=== PATIENT | male | born 1985 | race Caucasian/White ===

== ENCOUNTER 2018-11-10 10:28 | Outpatient (CLI) | payer OTHER, BC ==
[2018-11-10 12:52] LABS: BASOPHILS % (AUTO) 0.4 %; EOSINOPHILS # (AUTO) 0.3 10^3/uL (0.0-0.7); EOSINOPHILS % (AUTO) 3.8 %; HGB - HEMOGLOBIN 15.4 g/dL (14.0-18.0); LYMPHOCYTES # (AUTO) 1.6 10^3/uL (1.5-3.5); LYMPHOCYTES % (AUTO) 21.1 %; MEAN CORPUSCULAR HGB CONC 33.4 g/dL (32.0-36.0); MEAN CORPUSCULAR VOLUME 89.9 fL (80.0-94.0); MEAN PLATELET VOLUME 9.2 fL (7.4-11.4); MONOCYTES # (AUTO) 0.6 10^3/uL (0.0-1.0); MONOCYTES % (AUTO) 8.1 %; NEUTROPHILS # (AUTO) 5.1 10^3/uL (1.5-6.6); NEUTROPHILS % (AUTO) 66.6 %; PLT - PLATELET COUNT 228 10^3/uL (130-450); RED BLOOD COUNT 5.12 10^6/uL (4.70-6.10); RED CELL DISTRIBUTION WIDTH 13.4 % (12.0-15.0); WHITE BLOOD COUNT 7.6 x10^3/uL (4.8-10.8)
[2018-11-10 13:23] LABS: ALBUMIN 4.6 g/dL (3.2-5.5); ALBUMIN/GLOBULIN RATIO 1.8 (1.0-2.2); BILIRUBIN,TOTAL 0.7 mg/dL (0.2-1.0); CALCIUM 9.5 mg/dL (8.5-10.3); CREATININE 0.9 mg/dL (0.6-1.2); MAGNESIUM 2.3 mg/dL (1.7-2.8); TOTAL PROTEIN 7.2 g/dL (6.7-8.2)
== END 2018-11-10 23:59 | disposition home or self-care (01) ==
LOC: LAB.WCP 10:28
PROVIDERS: ATTEND Physician Assistant
DX: Z00.00 Encounter for general adult medical examination without abnormal findings (principal); R00.2 Palpitations
CPT/HCPCS: 36415; 80053; 83735; 84100; 85025

== ENCOUNTER 2019-06-22 09:41 | Day surgery (SDC) | payer OTHER, BC ==
[2019-06-22] MEDS ORDERED: ROCURONIUM 50 MG/5 ML VIAL IVP ONE (09:42)
[2019-06-22] MEDS ORDERED: NEOSTIGMINE 1 MG/1 ML 10 ML MDV IVP ONE (09:42)
[2019-06-22] MEDS ORDERED: DEXAMETHASONE 4 MG/ML VIAL IVP ONE (09:42)
[2019-06-22] MEDS ORDERED: MIDAZOLAM 2 MG/2 ML VIAL IVP ONE (09:42)
[2019-06-22] MEDS ORDERED: PROPOFOL 200 MG/20 ML VIAL IVP ONE (09:42)
[2019-06-22] MEDS ORDERED: fentaNYL 100 MCG/2 ML VIAL IVP ONE (09:42)
[2019-06-22] MEDS ORDERED: GLYCOPYRROLATE 1 MG/5 ML VIAL IVP ONE (09:42)
--- NOTE | 2019-06-22 10:10 | ANESTHESIA ---
Pre-Anesthesia VS, & Labs - Diagnosis hemorrhoids - Procedure hemorrhoidectomy Vital Signs: Temp Pulse Resp BP Pulse Ox 36.4 C L 50 L 16 119/70 100 06/22/19 09:54 06/22/19 09:54 06/22/19 09:54 06/22/19 09:54 06/22/19 09:54 Height 6 ft 5 in Weight (kg) 91 kg Home Medications and Allergies Home Medications: Ambulatory Orders Ascorbic Acid [Vitamin C] 500 mg PO DAILY 06/15/19 Aspirin/Acetaminophen/Caffeine [Excedrin Extra Strength Caplet] 1 each PO ONCE PRN 06/15/19 Calcium/Magnesium/Zinc [Ayepyrj-Beknkfscz-Poro Tablet] 1 each PO DAILY 06/15/19 Ferrous Gluconate [Iron] 240 mg PO DAILY 06/15/19 Flaxseed Oil 1,000 mg PO DAILY 06/15/19 Multivitamin [Multiple Vitamins] 1 each PO DAILY 06/15/19 Niacin 250 mg PO DAILY 06/15/19 [place]-3S/Dha/Epa/Fish Oil [Fish Oil [place]-3 Softgel] 1 each PO DAILY 06/15/19 Psyllium Husk [Fiber] 0.4 gm PO DAILY 06/15/19 Psyllium [Metamucil] 1 each PO DAILY 06/15/19 Vitamin B Complex 1 each PO DAILY 06/15/19 Ascorbic Acid [Vitamin C] 500 mg PO DAILY 06/15/19 Aspirin/Acetaminophen/Caffeine [Excedrin Extra Strength Caplet] 1 each PO ONCE PRN 06/15/19 Calcium/Magnesium/Zinc [Xwlrnqo-Rvdxohxkr-Pkml Tablet] 1 each PO DAILY 06/15/19 Ferrous Gluconate [Iron] 240 mg PO DAILY 06/15/19 Flaxseed Oil 1,000 mg PO DAILY 06/15/19 Multivitamin [Multiple Vitamins] 1 each PO DAILY 06/15/19 Niacin 250 mg PO DAILY 06/15/19 [place]-3S/Dha/Epa/Fish Oil [Fish Oil [place]-3 Softgel] 1 each PO DAILY 06/15/19 Psyllium Husk [Fiber] 0.4 gm PO DAILY 06/15/19 Psyllium [Metamucil] 1 each PO DAILY 06/15/19 Vitamin B Complex 1 each PO DAILY 06/15/19 Allergies/Adverse Reactions: Allergies Allergy/AdvReac Type Severity Reaction Status Date / Time No Known Drug Allergies Allergy Verified 06/15/19 14:14 Anes History & Medical History - Anesthetic History Anesthesia Complications: reports: No previous complications Family history of Anesthesia Complications: Denies Family history of Malignant Hyperthermia: Denies - Medical History Cardiovascular: reports: None Pulmonary: reports: Asthma (allergy induced asthma. Last time used was in summer 2018) Gastrointestinal: reports: None Urinary: reports: None Neuro: reports: None Musculoskeletal: reports: None Endocrine/Autoimmune: reports: None Blood Disorders: reports: None Skin: reports: Eczema Smoking Status: Former smoker Psychosocial: reports: No issues indicated - Surgical History General: Colonoscopy Eyes Ears Nose Throat (EENT): Other Exam General: Alert, Oriented x3, Cooperative, No acute distress Dental: WNL Mouth Openin Fingerbreadth Neck Mobility: Normal Mallampati classification: I Thyromental Distance: 4-6 cm Respiratory: Lungs clear, Normal breath sounds, No respiratory distress, No accessory muscle use Cardiovascular: Regular rate, Normal S1, Normal S2, No murmurs Abdomen: Normal bowel sounds, Soft, No tenderness, No hepatospenomegaly, No masses Extremities: No clubbing, No cyanosis, No edema, Normal pulses, No tenderness/swelling Neurological: Normal gait, Normal speech, Strength at 5/5 X4 ext, Normal tone, Sensation intact, Cranial nerves 3-12 NL, Reflexes 2+ Mental/Cognitive Status: Alert/Oriented X3, Normal for patient Cognitive Status: Within normal limits Plan Anesthesia Type: General Consent for Procedure(s) Verified and Reviewed: Yes Code Status: Attempt Resuscitation ASA classification: 1-Healthy patient Is this case an emergency?: No
[2019-06-22] MEDS ORDERED: BUPIVACAINE 0.5% PF 30 ML VIAL ONE (10:18)
[2019-06-22] MEDS ORDERED: LIDOCAINE 1%-EPI 1:100000 20 ML MDV ONE (10:19)
[2019-06-22] MEDS ORDERED: LIDOCAINE JELLY 2% 5 ML TUBE TOP ONE ×2 (10:19→11:53)
[2019-06-22] MEDS ORDERED: LACTATED RINGERS 1,000 ML IV ONE (10:26)
[2019-06-22] MEDS ORDERED: BUPIVACAINE 0.5% PF 30 ML VIAL INFIL ONE (11:53)
[2019-06-22] MEDS ORDERED: LIDOCAINE 1%-EPI 1:100000 20 ML MDV SUBQ ONE (11:53)
[2019-06-22] MEDS ORDERED: oxyCODONE 5 MG TABLET PO PRN (12:01)
[2019-06-22] MEDS ORDERED: IBUPROFEN 600 MG TABLET PO PRN (12:01)
[2019-06-22] MEDS ORDERED: ONDANSETRON 4 MG/2 ML VIAL IVP PRN (12:01)
[2019-06-22] MEDS ORDERED: ACETAMINOPHEN 325 MG TABLET PO PRN (12:01)
[2019-06-22 13:55] VITALS: BP 133/84
--- NOTE | 2019-06-22 14:02 | OPERATIVE REPORT ---
DATE OF SERVICE: 06/22/2019 Physician: Mathieu Fowler MD PREOPERATIVE DIAGNOSIS: Symptomatic internal/external hemorrhoids. POSTOPERATIVE DIAGNOSIS: Symptomatic internal/external hemorrhoids. PROCEDURE PERFORMED: Hemorrhoidectomy. ANESTHESIA: General endotracheal plus local. SURGEON: Mathieu Fowler MD ESTIMATED BLOOD LOSS: Less than 5 mL COMPLICATIONS: None. FINDINGS: Anoscopy revealed 2 internal/external hemorrhoidal complexes located in the left lateral and posterior midline positions that were, in the case of the left lateral quadrant, was thrombosed and prolapsed, and in the case of the posterior midline was inflamed. Normal size hemorrhoids were present in the right anterior and posterior quadrants. No other anal abnormalities were appreciated. INDICATIONS: Patient is a 33-year-old gentleman with longstanding symptomatic hemorrhoids with pain, prolapse swelling, itching and burning that has failed to respond to conservative medical management. He was interested in definitive surgical treatment. TECHNIQUE: After informed consent, the patient was taken to the operating room and was placed under general endotracheal anesthesia, was placed in the prone jackknife position with the buttocks taped apart. Perianal region was prepared with iodoform solution and draped in the usual sterile fashion. A perianal block was instituted using a 50:50 combination of 1% lidocaine with epinephrine and 0.5% Marcaine plain. A total of 30 mL of the mixture was used. The anal canal was gently dilated to 2 fingerbreadths and a univalved anal speculum inserted. Anoscopy was carried out with findings noted above. Each of the involved hemorrhoidal complexes was then picked up and excised using the LigaSure device. Care was taken to avoid injury to the underlying sphincter mechanism. This allowed for wound closure and hemostasis. The resected tissue was sent for pathologic evaluation. After hemostasis was assured, a wick of Gelfoam soaked in viscous Xylocaine was inserted in the anal canal, followed by dry sterile dressing. Anesthesia was terminated and patient was transferred to the recovery room in satisfactory condition. Sponge and needle counts were correct. No drains were used. TD: 06/22/2019 13:10 PATRICK
== END 2019-06-22 09:42 | disposition home or self-care (01) ==
LOC: SDS 09:41
PROVIDERS: ATTEND Internal Medicine Gastroenterology
PROC: 06BY0ZC Excision of Hemorrhoidal Plexus, Open Approach (ICD-10-PCS; principal; 2019-06-22 11:00)
DX: K64.5 Perianal venous thrombosis (principal); Z87.891 Personal history of nicotine dependence; Z87.09 Personal history of other diseases of the respiratory system; Z83.79 Family history of other diseases of the digestive system
CPT/HCPCS: 46260; J3490; J7120